=== PATIENT | female | born 1950 | race Caucasian/White ===

== ENCOUNTER 2017-03-20 15:02 | Emergency (ER) | payer MEDICAID ==
[~2017-03-20] VITALS: Ht 147.3 cm; Wt 74.7 kg
[2017-03-20] MEDS ORDERED: cloNIDine 0.1 mg tablet PO ONE (15:30)
[2017-03-20] MEDS ORDERED: morphine 5 MG/ML injection IV ONE (15:40)
[2017-03-20] MEDS ORDERED: morphine 4 MG/ML inj SYRINge IV ONE (15:40)
[2017-03-20] MEDS ORDERED: ondansetron/PF 4mg/2ml inj IV ONE (15:40)
[2017-03-20 16:03] LABS: BASOPHILS # (AUTO) 0.1 X10'3 (0-0.2); BASOPHILS % (AUTO) 0.7 % (0-1); EOSINOPHILS # (AUTO) 0.2 X10'3 (0-0.9); EOSINOPHILS % (AUTO) 1.6 % (0-6); HEMATOCRIT 48.1 % (35.0-45.0); HEMOGLOBIN 16.7 g/dl (12.0-16.0); LYMPHOCYTES % (AUTO) 31.1 % (21-51); MEAN CORPUSCULAR HEMOGLOBIN 30.7 PG (27.0-31.0); MEAN CORPUSCULAR HGB CONC 34.8 % (33.0-36.5); MEAN CORPUSCULAR VOLUME 88.3 FL (78-98); MEAN PLATELET VOLUME 8.7 FL (7.4-10.4); MONOCYTES # (AUTO) 1.1 X10'3 (0-0.9); MONOCYTES % (AUTO) 10.9 % (2-12); NEUTROPHILS # (AUTO) 5.4 X10'3 (1.8-7.7); NEUTROPHILS % (AUTO) 55.7 % (42-75); PLATELET COUNT 225 X10'3 (140-440); RED BLOOD COUNT 5.45 X10'6 (4.20-5.60); WHITE BLOOD COUNT 9.7 X10'3 (4.5-11.0)
[2017-03-20 16:20] LABS: ALANINE AMINOTRANSFERASE 52 U/L (12-78); ALBUMIN/GLOBULIN RATIO 0.7 (1.1-1.5); ALKALINE PHOSPHATASE 80 IU/L (46-116); ANION GAP 13 (8-16); ASPARTATE AMINO TRANSFERASE 37 U/L (10-37); BILIRUBIN,TOTAL 0.7 MG/DL (0.1-1.0); BLOOD UREA NITROGEN 13 MG/DL (7-18); BUN/CREATININE RATIO 13.4 (6.6-38.0); CALCIUM 10.1 MG/DL (8.5-10.1); CHLORIDE 99 MMOL/L (99-107); CREATININE 0.97 MG/DL (0.40-0.90); GLUCOSE 134 MG/DL (70-104); POTASSIUM 3.3 MMOL/L (3.5-5.1); SODIUM 139 MMOL/L (135-145); TOTAL CARBON DIOXIDE 27.2 MMOL/L (24-32); TOTAL PROTEIN 9.4 G/DL (6.4-8.2); eGFR 58 ML/MIN
[2017-03-20] MEDS ORDERED: normal saline 1000ML IV soln IVB ONE (16:45)
[2017-03-20] MEDS ORDERED: diphenhydrAMINE 50 mg/ml inj IV ONE (16:50)
[2017-03-20] MEDS ORDERED: metoclopramide 5 mg/ml inj IV ONE (16:50)
[2017-03-20 16:56] LABS: CLARITY,URINE SLIGHTLY CLOUDY (Clear); GLUCOSE, URINE NEGATIVE (Neg); KETONES,URINE NEGATIVE (Neg); LEUKOCYTE ESTERASE ,URINE NEGATIVE (Neg); NITRITES, URINE NEGATIVE (Neg); OCCULT BLOOD,URINE TRACE-INTACT (Neg); PROTEIN,URINE 30 mg/dl (Neg)
[2017-03-20 17:02] LABS: COLOR,URINE AMBER (Yellow); UA COLLECTION TYPE CLN CATCH MIDSTREAM
[2017-03-20 17:05] LABS: BACTERIA,URINE 1+ /HPF (Neg); COARSE GRANULAR CAST 0-3 /LPF (NEGATIVE); MUCUS STRANDS MODERATE /LPF (Neg); RBC,URINE 0-2 /HPF (0-2); SQUAMOUS EPITHELIAL CELL,UR MANY /LPF (FEW); WBC,URINE 0-4 /HPF (0-4)
[2017-03-20] MEDS ORDERED: vancomycin inj 1,000 MG in normal saline 250ml IV soln 250 ML IV ONE (18:10)
[2017-03-20] MEDS ORDERED: iohexol 350MG/ML 100ml bottle IV ONE (18:12)
[2017-03-20] MEDS ORDERED: metoclopramide 10mg tablet PO ONE (18:15)
[2017-03-20] MEDS ORDERED: vancomycin/NS 1 GM ADD-VANTAGE 250 ML X 1 DOSE IV ONE (18:15)
[2017-03-20] MEDS ORDERED: NAPR-56 PO (20:16)
[2017-03-20] MEDS ORDERED: CYCL-1 PO (20:16)
[2017-03-20] MEDS ORDERED: HYDR-3965 PO (20:16)
[2017-03-20 20:39] VITALS: BP 140/100
== END 2017-03-20 20:44 | disposition home or self-care (01) ==
LOC: ER 15:02
DX: M13.88 Other specified arthritis, other site (principal); F12.10 Cannabis abuse, uncomplicated; Z79.899 Other long term (current) drug therapy
CPT/HCPCS: 36415; 70450; 71275; 72125; 80053; 81001; 85025; 96361; 96365; 96366; 96375; 99285; J1200; J2405; J3370; J7030; J8597; Q9967

== ENCOUNTER 2017-08-02 17:27 | Emergency (ER) | payer MEDICAID ==
[~2017-08-02] VITALS: Ht 152.4 cm; Wt 79.5 kg
[~2017-08-02 17:27] MED LIST: AMLO10TA4 PO; ASPI-1 PO; ATOR20TA66 PO
[2017-08-02 18:08] VITALS: BP 136/82
[2017-08-02 18:50] LABS: BASOPHILS # (AUTO) 0.1 X10'3 (0-0.2); BASOPHILS % (AUTO) 0.9 % (0-1); EOSINOPHILS # (AUTO) 0.2 X10'3 (0-0.9); EOSINOPHILS % (AUTO) 3.2 % (0-6); HEMATOCRIT 43.1 % (35.0-45.0); HEMOGLOBIN 14.6 g/dl (12.0-16.0); LYMPHOCYTES % (AUTO) 43.1 % (21-51); MEAN CORPUSCULAR HEMOGLOBIN 30.7 PG (27.0-31.0); MEAN CORPUSCULAR HGB CONC 33.9 % (33.0-36.5); MEAN CORPUSCULAR VOLUME 90.4 FL (78-98); MONOCYTES # (AUTO) 0.6 X10'3 (0-0.9); MONOCYTES % (AUTO) 8.9 % (2-12); NEUTROPHILS % (AUTO) 43.9 % (42-75); PLATELET COUNT 223 X10'3 (140-440); RED BLOOD COUNT 4.77 X10'6 (4.20-5.60); RED CELL DISTRIBUTION WIDTH 14.3 % (11.5-14.5); WHITE BLOOD COUNT 6.9 X10'3 (4.5-11.0)
[2017-08-02 19:01] LABS: PARTIAL THROMBOPLASTIN TIME 25 SECONDS (22-32)
[2017-08-02 19:10] LABS: ALANINE AMINOTRANSFERASE 42 U/L (12-78); ALBUMIN 3.5 G/DL (3.4-5.0); ALBUMIN/GLOBULIN RATIO 0.8 (1.1-1.5); ALKALINE PHOSPHATASE 64 IU/L (46-116); ANION GAP 11 (8-16); ASPARTATE AMINO TRANSFERASE 35 U/L (10-37); BILIRUBIN,TOTAL 0.3 MG/DL (0.1-1.0); BLOOD UREA NITROGEN 4 MG/DL (7-18); CALCIUM 9.5 MG/DL (8.5-10.1); CHLORIDE 104 MMOL/L (99-107); CREATININE 0.99 MG/DL (0.40-0.90); GLUCOSE 126 MG/DL (70-104); SODIUM 143 MMOL/L (135-145); TOTAL CARBON DIOXIDE 27.8 MMOL/L (24-32); eGFR 56 ML/MIN
== END 2017-08-02 23:23 | disposition left against medical advice (07) ==
LOC: ER 17:28
DX: R07.9 Chest pain, unspecified (principal); Z53.21 Procedure and treatment not carried out due to patient leaving prior to being seen by health care provider
CPT/HCPCS: 36415; 71045; 80053; 84484; 85025; 85610; 85730; 93005; 99281

== ENCOUNTER 2020-06-22 14:42 | Emergency (ER) | payer MEDICAID ==
[~2020-06-22] VITALS: Ht 147.3 cm; Wt 75.0 kg
[~2020-06-22 14:42] MED LIST changes: -ASPI-1 PO; +HYDR12.5 PO; +LACT1CAP26 PO; +LOSA25TA96 PO; +OMEP40CA13 PO
[2020-06-22] MEDS ORDERED: iohexol 350MG/ML 100ml bottle IV ONE (15:09)
[2020-06-22] MEDS ORDERED: normal saline 1000ML IV soln IVB ONE ×2 (15:25→16:05)
[2020-06-22] MEDS ORDERED: metoclopramide 5 mg/ml inj IV ONE (15:25)
[2020-06-22] MEDS ORDERED: LORazepam 2 mg/ml vial IV ONE (15:25)
[2020-06-22] MEDS ORDERED: morphine 4 MG/ML inj SYRINge IV ONE (15:25)
[2020-06-22 15:27] LABS: BASOPHILS # (AUTO) 0.1 X10'3 (0-0.2); EOSINOPHILS # (AUTO) 0.2 X10'3 (0-0.9); HEMATOCRIT 42.7 % (35.0-45.0); MEAN CORPUSCULAR HEMOGLOBIN 30.8 PG (27.0-31.0); NEUTROPHILS % (AUTO) 42.8 % (42-75)
[2020-06-22 15:28] LABS: BASOPHILS % (AUTO) 1.1 % (0-1); EOSINOPHILS % (AUTO) 2.6 % (0-6); HEMOGLOBIN 14.5 g/dl (12.0-16.0); LYMPHOCYTES # (AUTO) 3.5 X10'3 (1.1-4.8); LYMPHOCYTES % (AUTO) 41.8 % (21-51); MEAN CORPUSCULAR VOLUME 90.7 FL (78-98); MEAN PLATELET VOLUME 8.3 FL (7.4-10.4); MONOCYTES % (AUTO) 11.7 % (2-12); NEUTROPHILS # (AUTO) 3.5 X10'3 (1.8-7.7); PLATELET COUNT 218 X10'3 (140-440); RED BLOOD COUNT 4.71 X10'6 (4.20-5.60); RED CELL DISTRIBUTION WIDTH 14.3 % (11.5-14.5); WHITE BLOOD COUNT 8.2 X10'3 (4.5-11.0)
[2020-06-22 15:37] LABS: PARTIAL THROMBOPLASTIN TIME 29 SECONDS (22-32)
[2020-06-22 15:40] LABS: ALANINE AMINOTRANSFERASE 28 U/L (12-78); ALBUMIN 3.9 G/DL (3.4-5.0); ALBUMIN/GLOBULIN RATIO 0.8 (1.1-1.5); ALKALINE PHOSPHATASE 91 IU/L (46-116); ANION GAP 10 (8-16); ASPARTATE AMINO TRANSFERASE 25 U/L (10-37); BILIRUBIN,TOTAL 0.8 MG/DL (0.1-1.0); BLOOD UREA NITROGEN 9 MG/DL (7-18); BUN/CREATININE RATIO 8.3 (6.6-38.0); CALCIUM 9.8 MG/DL (8.5-10.1); CHLORIDE 103 MMOL/L (99-107); CREATININE 1.08 MG/DL (0.40-0.90); GLUCOSE 113 MG/DL (70-104); POTASSIUM 3.5 MMOL/L (3.5-5.1); SODIUM 138 MMOL/L (135-145); TOTAL CARBON DIOXIDE 25.3 MMOL/L (24-32); eGFR 50 ML/MIN
--- NOTE | 2020-06-22 15:53 | NUR ---
stroke alert called off by leo patel
[2020-06-22] MEDS ORDERED: methylPREDNISolone sod succ 125mg/2ml vial IV ONE (16:05)
[2020-06-22] MEDS ORDERED: ketorolac trometh. 30mg/ml inj. IV ONE (16:15)
[2020-06-22] MEDS ORDERED: ketorolac tromethamine 15mg/ml inj. IV ONE (16:15)
[2020-06-22 16:54] LABS: CLARITY,URINE CLEAR (Clear); COLOR,URINE YELLOW (Yellow); GLUCOSE, URINE NEGATIVE (Neg); KETONES,URINE NEGATIVE (Neg); LEUKOCYTE ESTERASE ,URINE NEGATIVE (Neg); NITRITES, URINE NEGATIVE (Neg); OCCULT BLOOD,URINE TRACE-INTACT (Neg); PH,URINE 6.5 (4.8-8.0); PROTEIN,URINE NEGATIVE (Neg); UROBILINOGEN,URINE 0.2 E.U/dL (0.2-1.0)
[2020-06-22 16:57] LABS: UA COLLECTION TYPE VOIDED
[2020-06-22 16:58] LABS: RBC,URINE 0-2 /HPF (0-2); WBC,URINE NONE SEEN /HPF (0-4)
[2020-06-22 16:59] LABS: BACTERIA,URINE FEW /HPF (Neg); MUCUS STRANDS NONE SEEN /LPF (Neg); SQUAMOUS EPITHELIAL CELL,UR FEW /LPF (FEW)
[2020-06-22 17:06] LABS: URINE AMPHETAMINE SCREEN NEGATIVE (Neg); URINE BARBITUATE SCREEN NEGATIVE (Neg); URINE BENZODIAZEPINES SCREEN NEGATIVE (Neg); URINE CANNABINOID SCREEN POSITIVE (Neg); URINE COCAINE SCREEN NEGATIVE (Neg); URINE METHADONE SCREEN NEGATIVE (Neg); URINE OPIATE SCREEN NEGATIVE (Neg); URINE PHENCYCLIDINE SCREEN NEGATIVE (Neg)
[2020-06-22 17:15] VITALS: BP 137/78
== END 2020-06-22 18:26 | disposition home or self-care (01) ==
LOC: ER 14:44
DX: G43.909 Migraine, unspecified, not intractable, without status migrainosus (principal); R11.0 Nausea; R79.1 Abnormal coagulation profile; F12.90 Cannabis use, unspecified, uncomplicated; F15.90 Other stimulant use, unspecified, uncomplicated; Z72.89 Other problems related to lifestyle; Z79.899 Other long term (current) drug therapy
CPT/HCPCS: 36415; 70450; 70498; 71045; 80053; 80305; 81001; 85025; 85610; 85730; 86885; 86900; 86901; 93005; 96374; 96375; 99285; J1885; J2060; J2270; J2765; J2930; J7030; Q9967

== ENCOUNTER 2020-11-21 08:13 | Day surgery (SDC) | payer MEDICAID ==
[2020-11-14 16:30] LABS: BASOPHILS # (AUTO) 0.1 X10'3 (0-0.2); BASOPHILS % (AUTO) 1.1 % (0-1); EOSINOPHILS # (AUTO) 0.3 X10'3 (0-0.9); EOSINOPHILS % (AUTO) 4.5 % (0-6); LYMPHOCYTES # (AUTO) 3.3 X10'3 (1.1-4.8); LYMPHOCYTES % (AUTO) 43.1 % (21-51); MEAN CORPUSCULAR HEMOGLOBIN 30.9 PG (27.0-31.0); MEAN CORPUSCULAR HGB CONC 34.3 g/dL (33.0-36.5); MEAN CORPUSCULAR VOLUME 90.1 FL (78-98); MEAN PLATELET VOLUME 8.6 FL (7.4-10.4); MONOCYTES # (AUTO) 0.7 X10'3 (0-0.9); MONOCYTES % (AUTO) 9.3 % (2-12); NEUTROPHILS # (AUTO) 3.2 X10'3 (1.8-7.7); PRE OP HEMATOCRIT 42.3 % (35.0-45.0); PRE OP HEMOGLOBIN 14.5 g/dL (12.0-16.0); PRE OP PLATELET COUNT 254 X10'3 (140-440); RED CELL DISTRIBUTION WIDTH 13.9 % (11.5-14.5)
[2020-11-14 16:43] LABS: PRE OP PROTIME 10.3 SECONDS (9.0-12.0)
[2020-11-14 16:47] LABS: ALBUMIN/GLOBULIN RATIO 0.8 (1.1-1.5); ALKALINE PHOSPHATASE 106 IU/L (46-116); BLOOD UREA NITROGEN 14 MG/DL (7-18); BUN/CREATININE RATIO 11.8 (6.6-38.0); CALCIUM 9.8 MG/DL (8.5-10.1); CHLORIDE 105 MMOL/L (99-107); CREATININE 1.19 MG/DL (0.40-0.90); PRE OP ALT 41 U/L (30-65); PRE OP ANION GAP 11 (8-16); PRE OP AST 33 U/L (10-37); PRE OP BILIRUB, TOTAL 0.5 MG/DL (0.0-1.0); PRE OP GLUCOSE 97 MG/DL (70-104); PRE OP POTASSIUM 3.7 MMOL/L (3.4-5.1); PRE OP SODIUM 143 MMOL/L (135-145); TOTAL CARBON DIOXIDE 27.4 MMOL/L (24-32); TOTAL PROTEIN 8.9 G/DL (6.4-8.2); eGFR 45 ML/MIN
[~2020-11-21] VITALS: Ht 147.3 cm; Wt 82.1 kg
[2020-11-21] VITALS (10 sets, daily range): BP systolic 123–168; BP diastolic 67–110
[~2020-11-21 08:13] MED LIST changes: +AMLO10TA13 PO; -AMLO10TA4 PO; -ATOR20TA66 PO; +ATOR40TA71 PO; +BUPIVAcaine/PF 2.5mg/ml (0.25%) 10ml vial ONE; +CALC-157 PO; -HYDR12.5 PO; -LACT1CAP26 PO; +LIDOcaine 1% 30ml preserv. free vial ONE; +LOSA25TA41 PO; -LOSA25TA96 PO; -OMEP40CA13 PO; +OMEP40CA21 PO; +cefazolin/dext.iso 2gm/50ml 50 ML IV ONE; +famotidine 20mg tablet PO ONE; +ringers solution, lacted 1,000 ML IV SCH
[2020-11-21] MEDS ORDERED: INDOCYANINE GREEN 25 MG/10 ML VIAL IV ONE (09:15)
[2020-11-21] MEDS ORDERED: sevoflurane 250ml liquid IH ONE (11:18)
[2020-11-21] MEDS ORDERED: midazolam 1 mg/ML 2ml injection ONE (11:24)
[2020-11-21] MEDS ORDERED: hydrALAZINE 20mg/ml inj. IV PRN (12:00)
[2020-11-21] MEDS ORDERED: morphine 2 MG/ML inj. syringe IV PRN (12:00)
[2020-11-21] MEDS ORDERED: proCHLORperazine 10 MG/2 ml inj IV PRN (12:00)
[2020-11-21] MEDS ORDERED: ringers solution, lacted 1,000 ML IV SCH (12:00)
[2020-11-21] MEDS ORDERED: labetalol 20mg/4ml (5mg/ml) syringe IV PRN (12:00)
[2020-11-21] MEDS ORDERED: ondansetron/PF 4mg/2ml inj IV PRN (12:00)
[2020-11-21] MEDS ORDERED: meperidine/PF 25mg/ml syringe IV PRN ×3 (12:00)
[2020-11-21] MEDS ORDERED: acetaminophen 1,000mg/100ml IV 100 ML IV PRN (12:00)
[2020-11-21] MEDS ORDERED: dexamethasone sod phosphate 4mg/ml inj. ONE (12:34)
[2020-11-21] MEDS ORDERED: fentaNYL /PF 50mcg/ml 5ml ampule ONE (12:34)
[2020-11-21] MEDS ORDERED: rocuronium 10mg/ml inj IV ONE (12:34)
[2020-11-21] MEDS ORDERED: propofol inj 20 ML IV ONE (12:34)
[2020-11-21] MEDS ORDERED: ondansetron/PF 4mg/2ml inj ONE (12:34)
[2020-11-21] MEDS ORDERED: LIDOcaine 2% (20mg/ml) 5ml vial ONE (12:34)
[2020-11-21] MEDS ORDERED: neostigmine methylsulfate 1 MG/ML 10ml vial ONE (12:38)
[2020-11-21] MEDS ORDERED: glycopyrrolate 0.2mg/ml inj ONE (12:38)
--- NOTE | 2020-11-21 13:00 | NUR ---
Received from OR via [facility] , accompanied by Anesthesiologist JESUS and report given by Anesthesiolgist. PATIENT WITH 20G PIV IN RIGHT UE RUNNING LR AT 100. MEDICATED FOR PAIN UPON ARRIVAL. PATIENT WITH 10L MASK ON WITH 94%4 ABDOMINAL LAP SITES PRESENT SATURATIONS. Addendum: 11/21/20 at 1314 by Jerod Prince RN, RN Amended: Links added.
[2020-11-21] MEDS: morphine 4 MG/ML inj SYRINge IV PRN ×2 (13:06→13:38)
[2020-11-21] MEDS ORDERED: oxyCODONE/APAP 5-325mg tablet PO PRN ×2 (13:15)
--- NOTE | 2020-11-21 14:30 | NUR ---
Report called to receiving nurse. Transferred via WHEELCHAIR WITH Belongings TO [facility] WHERE SHE WAS TAKEN HOME. PATIENT EDUCATED AND DEMONSTRATED PROPER USE OF INCENTIVE SPIROMETER.ENCOURAGE SPLINTING WITH PILLOW AND TO COUGH AND DEEP BREATHE. ALSO DISCUSSED POSSIBILITY OF CO2 IN ABDOMEN. DRESSINGS CDI AT THIS TIME. Addendum: 11/21/20 at 1440 by Jerod Prince RN, RN Amended: Links added.
== END 2020-11-21 14:30 | disposition home or self-care (01) ==
LOC: PAS 08:13
PROVIDERS: ATTEND Surgery
DX: K80.10 Calculus of gallbladder with chronic cholecystitis without obstruction (principal); I10 Essential (primary) hypertension; F32.9 Major depressive disorder, single episode, unspecified; E03.9 Hypothyroidism, unspecified; F12.90 Cannabis use, unspecified, uncomplicated; Z79.899 Other long term (current) drug therapy; Z20.822 Contact with and (suspected) exposure to COVID-19; Z79.01 Long term (current) use of anticoagulants; Z98.890 Other specified postprocedural states; Z86.73 Personal history of transient ischemic attack (TIA), and cerebral infarction without residual deficits; Z86.19 Personal history of other infectious and parasitic diseases; Z82.49 Family history of ischemic heart disease and other diseases of the circulatory system; Z82.61 Family history of arthritis
CPT/HCPCS: 36415; 47563; 80053; 82948; 85025; 85610; 85730; J1100; J2001; J2250; J2270; J2405; J2704; J2710; J3010; J3490; J7120; S2900; U0003; U0005; Z7506; Z7508; Z7512; A4215; A4618; A7000

== ENCOUNTER 2021-05-12 12:04 | Inpatient (IN) | payer MEDICAID ==
[~2021-05-12] VITALS: Ht 147.3 cm; Wt 86.4 kg
[~2021-05-12 12:04] MED LIST changes: -BUPIVAcaine/PF 2.5mg/ml (0.25%) 10ml vial ONE; -LIDOcaine 1% 30ml preserv. free vial ONE; -cefazolin/dext.iso 2gm/50ml 50 ML IV ONE; -famotidine 20mg tablet PO ONE; -ringers solution, lacted 1,000 ML IV SCH
[2021-05-12 12:42] LABS: EOSINOPHILS # (AUTO) 0.3 X10'3 (0-0.9); HEMOGLOBIN 14.8 g/dl (12.0-16.0); MONOCYTES # (AUTO) 0.6 X10'3 (0-0.9); WHITE BLOOD COUNT 7.8 X10'3 (4.5-11.0)
[2021-05-12 12:44] LABS: BASOPHILS # (AUTO) 0.2 X10'3 (0-0.2); BASOPHILS % (AUTO) 3.2 % (0-1); EOSINOPHILS % (AUTO) 3.6 % (0-6); HEMATOCRIT 45.1 % (35.0-45.0); LYMPHOCYTES # (AUTO) 4.4 X10'3 (1.1-4.8); LYMPHOCYTES % (AUTO) 55.8 % (21-51); MEAN CORPUSCULAR HEMOGLOBIN 29.5 PG (27.0-31.0); MEAN CORPUSCULAR HGB CONC 32.8 g/dL (33.0-36.5); MEAN CORPUSCULAR VOLUME 89.9 FL (78-98); MEAN PLATELET VOLUME 9.2 FL (7.4-10.4); MONOCYTES % (AUTO) 7.3 % (2-12); NEUTROPHILS # (AUTO) 2.3 X10'3 (1.8-7.7); NEUTROPHILS % (AUTO) 30.1 % (42-75); PLATELET COUNT 241 X10'3 (140-440); RED BLOOD COUNT 5.02 X10'6 (4.20-5.60); RED CELL DISTRIBUTION WIDTH 13.9 % (11.5-14.5)
[2021-05-12 13:04] LABS: ALANINE AMINOTRANSFERASE 50 U/L (12-78); ALBUMIN 4.2 G/DL (3.4-5.0); ALBUMIN/GLOBULIN RATIO 0.9 (1.1-1.5); ALKALINE PHOSPHATASE 103 IU/L (46-116); ANION GAP 10 (8-16); ASPARTATE AMINO TRANSFERASE 46 U/L (10-37); BILIRUBIN,TOTAL 0.7 MG/DL (0.1-1.0); BLOOD UREA NITROGEN 11 MG/DL (7-18); BUN/CREATININE RATIO 10.2 (6.6-38.0); CHLORIDE 104 MMOL/L (99-107); CREATININE 1.08 MG/DL (0.40-0.90); GLUCOSE 112 MG/DL (70-104); PLATELET ESTIMATE NORMAL; POTASSIUM 3.8 MMOL/L (3.5-5.1); SODIUM 141 MMOL/L (135-145); TOTAL CARBON DIOXIDE 27.5 MMOL/L (24-32); TOTAL CELLS COUNTED 100; TOTAL PROTEIN 9.1 G/DL (6.4-8.2); eGFR 50 ML/MIN
--- NOTE | 2021-05-12 13:45 | NUR ---
pt ambulated to/from restroom without incident. pt reports she feels much better now. awaiting md swenson.
--- NOTE | 2021-05-12 14:34 | NUR ---
dr. tejeda at bedside.
[2021-05-12 14:58] LABS: CLARITY,URINE CLEAR (Clear); GLUCOSE, URINE NEGATIVE (Neg); KETONES,URINE NEGATIVE (Neg); LEUKOCYTE ESTERASE ,URINE NEGATIVE (Neg); NITRITES, URINE NEGATIVE (Neg); OCCULT BLOOD,URINE NEGATIVE (Neg); PH,URINE 7.5 (4.8-8.0); PROTEIN,URINE NEGATIVE (Neg); UROBILINOGEN,URINE 0.2 E.U/dL (0.2-1.0)
[2021-05-12 15:00] LABS: COLOR,URINE STRAW (Yellow); UA COLLECTION TYPE CLN CATCH MIDSTREAM
[2021-05-12] MEDS ORDERED: ondansetron/PF 4mg/2ml inj IV PRN (16:15)
[2021-05-12] MEDS ORDERED: acetaminophen 325mg tablet PO PRN ×2 (16:15)
[2021-05-12] MEDS ORDERED: magnesium hydroxide 30ml (MOM) UD suspension PO PRN (16:15)
[2021-05-12] MEDS ORDERED: morphine 2 MG/ML inj. syringe IV PRN ×2 (16:15)
[2021-05-12] MEDS ORDERED: mag hydrox/Alum hydrox/simeth 30ml oral suspension PO PRN (16:15)
[2021-05-12] MEDS ORDERED: HYDROcodone/acetaminophen 5mg/325mg tablet PO PRN (16:15)
[2021-05-12] MEDS ORDERED: ATOR40TA72 (16:23)
[2021-05-12] MEDS ORDERED: LOSA50TA64 PO (16:23)
[2021-05-12] MEDS ORDERED: ONDA-103 PO (16:23)
[2021-05-12] MEDS ORDERED: OMEP20CA16 PO (16:23)
[2021-05-12] MEDS ORDERED: ASPI-1174 PO (16:23)
[2021-05-12] MEDS ORDERED: AMLO10TA PO (16:23)
--- NOTE | 2021-05-12 18:26 | NUR ---
report to remi tavares
[2021-05-12] MEDS: docusate sod 100mg capsule PO SCH (19:58)
--- NOTE | 2021-05-12 20:40 | NUR ---
Pt arrived from [facility] via [facility], able to get self from bed to [facility] unassisted.
[2021-05-12 20:50] VITALS: BP 136/65
--- NOTE | 2021-05-12 21:00 | NUR ---
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
[2021-05-12 22:00] VITALS: BP 99/56
[2021-05-13 02:00] VITALS: BP 109/87
--- NOTE | 2021-05-13 03:44 | NUR ---
Went to see if pt needed a pain med and pt asleep.
--- NOTE | 2021-05-13 03:54 | NUR ---
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 resolved, pt having weber's Addendum: 05/13/21 at 0356 by Olamide Hogan RN Amended: Links added.
[2021-05-13 06:00] VITALS: BP 132/76
--- NOTE | 2021-05-13 06:10 | NUR ---
Patient in room PCU 3026. I have received report from Sandra COHN and had the opportunity to ask questions and assume patient care.
--- NOTE | 2021-05-13 06:28 | NUR ---
Report to day RN. Laura
[2021-05-13 07:12] LABS: BASOPHILS % (AUTO) 0.6 % (0-1); EOSINOPHILS # (AUTO) 0.4 X10'3 (0-0.9); EOSINOPHILS % (AUTO) 5.1 % (0-6); HEMATOCRIT 40.4 % (35.0-45.0); HEMOGLOBIN 13.6 g/dl (12.0-16.0); LYMPHOCYTES # (AUTO) 3.3 X10'3 (1.1-4.8); LYMPHOCYTES % (AUTO) 42.4 % (21-51); MEAN CORPUSCULAR HEMOGLOBIN 30.5 PG (27.0-31.0); MEAN CORPUSCULAR HGB CONC 33.6 g/dL (33.0-36.5); MEAN CORPUSCULAR VOLUME 90.7 FL (78-98); MEAN PLATELET VOLUME 9.1 FL (7.4-10.4); MONOCYTES # (AUTO) 0.6 X10'3 (0-0.9); MONOCYTES % (AUTO) 8.1 % (2-12); NEUTROPHILS # (AUTO) 3.4 X10'3 (1.8-7.7); NEUTROPHILS % (AUTO) 43.8 % (42-75); PLATELET COUNT 209 X10'3 (140-440); RED BLOOD COUNT 4.45 X10'6 (4.20-5.60); WHITE BLOOD COUNT 7.7 X10'3 (4.5-11.0)
[2021-05-13 07:13] LABS: ALBUMIN 3.4 G/DL (3.4-5.0); ANION GAP 7 (8-16); BLOOD UREA NITROGEN 18 MG/DL (7-18); BUN/CREATININE RATIO 14.6 (6.6-38.0); CHLORIDE 107 MMOL/L (99-107); CREATININE 1.23 MG/DL (0.40-0.90); GLUCOSE 88 MG/DL (70-104); POTASSIUM 3.8 MMOL/L (3.5-5.1); SODIUM 141 MMOL/L (135-145); TOTAL CARBON DIOXIDE 27.1 MMOL/L (24-32); eGFR 43 ML/MIN
[2021-05-13] MEDS ORDERED: pantoprazole 40mg Tablet.DR PO SCH (07:30)
[2021-05-13] MEDS ORDERED: amLODIPine 5mg tablet PO SCH (08:00)
[2021-05-13] MEDS ORDERED: losartan 50mg tablet PO SCH (08:00)
[2021-05-13] MEDS ORDERED: enoxaparin 40mg/0.4ml syringe SUBCUT SCH (08:00)
[2021-05-13] MEDS ORDERED: aspirin 325mg tablet PO SCH (08:00)
[2021-05-13] MEDS: docusate sod 100mg capsule PO SCH (08:08)
[2021-05-13 11:00] VITALS: BP 107/57
--- NOTE | 2021-05-13 12:43 | NUR ---
Patient is stable for discharge per Rusu MD orders. All discharge instructions reviewed with patient and all questions answered. New prescriptions were e scripted to pharmacy. PIV discontinued. rail car repair carman discontinued. Belongings collected and sent with patient. Patient is leaving for transportation via taxi cab. Wheeled to lobby.
== END 2021-05-13 13:41 | disposition home health service (06) | DRG 203 ==
LOC: ER 12:05 → ED HOLD 16:24 → PCU 3S 20:40
PROVIDERS: ADMIT Internal Medicine; ATTEND Internal Medicine
DX: R07.89 Other chest pain (principal); E78.5 Hyperlipidemia, unspecified; F12.90 Cannabis use, unspecified, uncomplicated; I10 Essential (primary) hypertension; Z79.899 Other long term (current) drug therapy; Z86.73 Personal history of transient ischemic attack (TIA), and cerebral infarction without residual deficits; Z90.49 Acquired absence of other specified parts of digestive tract
CPT/HCPCS: 36415; 70450; 71045; 80048; 80053; 81003; 83880; 84443; 84484; 85007; 85025; 85651; 87081; 93005; 93880; 99285; G0378; J1650

== ENCOUNTER 2022-07-20 09:11 | Emergency (ER) | payer MEDICAID ==
[~2022-07-20] VITALS: Ht 152.4 cm; Wt 88.2 kg
[~2022-07-20 09:11] MED LIST changes: +AMLO10TA PO; -AMLO10TA13 PO; +ASPI-1174 PO; -ATOR40TA71 PO; +ATOR40TA72; -CALC-157 PO; -LOSA25TA41 PO; +LOSA50TA64 PO; +OMEP20CA16 PO; -OMEP40CA21 PO; +ONDA-103 PO
[2022-07-20 09:16] VITALS: BP 112/58
[2022-07-20 09:47] LABS: BASOPHILS # (AUTO) 0.1 X10'3 (0-0.2); BASOPHILS % (AUTO) 1.1 % (0-1); EOSINOPHILS # (AUTO) 0.9 X10'3 (0-0.9); HEMATOCRIT 37.8 % (35.0-45.0); HEMOGLOBIN 12.5 g/dl (12.0-16.0); LYMPHOCYTES # (AUTO) 2.5 X10'3 (1.1-4.8); LYMPHOCYTES % (AUTO) 33.4 % (21-51); MEAN CORPUSCULAR HEMOGLOBIN 30.8 PG (27.0-31.0); MEAN CORPUSCULAR VOLUME 93.2 FL (78-98); MEAN PLATELET VOLUME 8.4 FL (7.4-10.4); MONOCYTES # (AUTO) 0.8 X10'3 (0-0.9); MONOCYTES % (AUTO) 10.5 % (2-12); NEUTROPHILS # (AUTO) 3.2 X10'3 (1.8-7.7); PLATELET COUNT 200 X10'3 (140-440); RED BLOOD COUNT 4.05 X10'6 (4.20-5.60); RED CELL DISTRIBUTION WIDTH 14.4 % (11.5-14.5); WHITE BLOOD COUNT 7.5 X10'3 (4.5-11.0)
[2022-07-20 10:07] LABS: BLOOD UREA NITROGEN 38 MG/DL (7-18)
[2022-07-20 10:11] LABS: ALANINE AMINOTRANSFERASE 70 U/L (12-78); ALBUMIN 3.6 G/DL (3.4-5.0); ALBUMIN/GLOBULIN RATIO 0.9 (1.1-1.5); ALKALINE PHOSPHATASE 61 IU/L (46-116); ANION GAP 13 (8-16); ASPARTATE AMINO TRANSFERASE 64 U/L (10-37); BILIRUBIN,TOTAL 0.2 MG/DL (0.1-1.0); CALCIUM 9.1 MG/DL (8.5-10.1); CHLORIDE 105 MMOL/L (99-107); CREATININE 2.37 MG/DL (0.40-0.90); GLUCOSE 101 MG/DL (70-104); LIPASE 155 U/L (73-393); POTASSIUM 4.3 MMOL/L (3.5-5.1); SODIUM 139 MMOL/L (135-145); TOTAL CARBON DIOXIDE 20.9 MMOL/L (24-32); TOTAL PROTEIN 7.6 G/DL (6.4-8.2); eGFR 20 ML/MIN
[2022-07-20] MEDS ORDERED: ibuprofen 200mg tablet PO ONE (12:45)
== END 2022-07-20 13:16 | disposition home or self-care (01) ==
LOC: ER 09:12
DX: K43.9 Ventral hernia without obstruction or gangrene (principal); I10 Essential (primary) hypertension; Z79.899 Other long term (current) drug therapy
CPT/HCPCS: 36415; 80053; 83690; 85025; 99283

== ENCOUNTER 2023-10-21 08:16 | Inpatient (IN) | payer MEDICAID ==
[2023-10-20 19:50] VITALS: BP 93/60; PULSE 73; RESP 16; TEMP 98; O2SAT 97
[~2023-10-21] VITALS: Ht 147.3 cm; Wt 84.1 kg
[~2023-10-21 08:16] MED LIST changes: -ASPI-1174 PO; +ASPI-1468 PO; +CALC-472 PO; +METO25TA6 PO; -ONDA-103 PO; +PER5325T PO
[2023-10-21] MEDS ORDERED: ketorolac trometh 15mg/ml vial 15 MG/ML ML IM ONE (09:30)
[2023-10-21 09:59] LABS: BASOPHILS % (AUTO) 0.4 % (0-1); EOSINOPHILS % (AUTO) 0.3 % (0-6); HEMATOCRIT 37.9 % (35.0-45.0); HEMOGLOBIN 12.5 g/dl (12.0-16.0); LYMPHOCYTES # (AUTO) 2.1 X10'3 (1.1-4.8); LYMPHOCYTES % (AUTO) 19.3 % (21-51); MEAN CORPUSCULAR HEMOGLOBIN 30.4 PG (27.0-31.0); MEAN CORPUSCULAR HGB CONC 32.9 g/dL (33.0-36.5); MEAN CORPUSCULAR VOLUME 92.3 FL (78-98); MEAN PLATELET VOLUME 8.6 FL (7.4-10.4); MONOCYTES # (AUTO) 1.5 X10'3 (0-0.9); MONOCYTES % (AUTO) 13.1 % (2-12); NEUTROPHILS # (AUTO) 7.4 X10'3 (1.8-7.7); NEUTROPHILS % (AUTO) 66.9 % (42-75); PLATELET COUNT 250 X10'3 (140-440); RED BLOOD COUNT 4.11 X10'6 (4.20-5.60); RED CELL DISTRIBUTION WIDTH 13.6 % (11.5-14.5); WHITE BLOOD COUNT 11.1 X10'3 (4.5-11.0)
[2023-10-21 10:12] LABS: ALANINE AMINOTRANSFERASE 14 U/L (12-78); ALBUMIN 3.4 G/DL (3.4-5.0); ALBUMIN/GLOBULIN RATIO 0.6 (1.1-1.5); ALKALINE PHOSPHATASE 81 IU/L (46-116); ANION GAP 13 (8-16); ASPARTATE AMINO TRANSFERASE 18 U/L (10-37); BILIRUBIN,TOTAL 0.7 MG/DL (0.1-1.0); BLOOD UREA NITROGEN 38 MG/DL (7-18); BUN/CREATININE RATIO 11.4 (10.0-20.0); CALCIUM 9.9 MG/DL (8.5-10.1); CHLORIDE 105 MMOL/L (99-107); CREATININE 3.34 MG/DL (0.40-0.90); GLUCOSE 114 MG/DL (70-104); POTASSIUM 3.9 MMOL/L (3.5-5.1); SODIUM 139 MMOL/L (135-145); TOTAL CARBON DIOXIDE 21.4 MMOL/L (24-32); TOTAL PROTEIN 8.8 G/DL (6.4-8.2); eCRCL 10 ML/MIN; eGFR 14 ML/MIN
[2023-10-21 11:12] LABS: C-REACTIVE PROTEIN 8.22 MG/DL (0.0-0.5)
[2023-10-21] MEDS ORDERED: diphenhydrAMINE 25mg capsule PO PRN (11:40)
[2023-10-21] MEDS ORDERED: diphenhydrAMINE 50 mg/ml inj IV PRN (11:40)
[2023-10-21] MEDS ORDERED: potassium Cl 20 mEq SR tablet PO PRN ×2 (11:40)
[2023-10-21] MEDS ORDERED: magnesium hydroxide 30ml (MOM) UD suspension PO PRN (11:40)
[2023-10-21] MEDS ORDERED: morphine 2 MG/ML inj. syringe IV PRN ×2 (11:40)
[2023-10-21] MEDS ORDERED: mag hydrox/Alum hydrox/simeth 30ml oral suspension PO PRN (11:40)
[2023-10-21] MEDS: enoxaparin 40mg/0.4ml syringe SUBCUT SCH (12:13)
[2023-10-21] MEDS: oxyCODONE IR 5mg (immed. release) tablet PO ONE (12:13)
[2023-10-21] MEDS: cyclobenzaprine 10mg tablet PO ONE (12:14)
[2023-10-21] MEDS: acetaminophen 325mg tablet PO ONE (12:14)
[2023-10-21] MEDS: normal saline 500ml IV soln 500 ML IV ONE (12:21)
[2023-10-21] MEDS: normal saline 1000ml 1,000 ML IV SCH (12:24)
[2023-10-21 12:40] LABS: BILIRUBIN,URINE NEGATIVE (Neg); CLARITY,URINE CLOUDY (Clear); COLOR,URINE YELLOW (Yellow); GLUCOSE, URINE NEGATIVE (Neg); KETONES,URINE NEGATIVE (Neg); LEUKOCYTE ESTERASE ,URINE SMALL (Neg); NITRITES, URINE NEGATIVE (Neg); OCCULT BLOOD,URINE NEGATIVE (Neg); PROTEIN,URINE TRACE mg/dl (Neg); UROBILINOGEN,URINE 0.2 E.U/dL (0.2-1.0)
[2023-10-21 12:50] LABS: UA COLLECTION TYPE OTHER
[2023-10-21 12:52] LABS: AMORPHOUS URATES 4+; BACTERIA,URINE 3+ /HPF (Neg); RBC,URINE 0-2 /HPF (0-2); SQUAMOUS EPITHELIAL CELL,UR MANY /LPF (FEW); WBC,URINE 0-4 /HPF (0-4)
[2023-10-21] MEDS: morphine 4 MG/ML inj SYRINge IV ONE (14:42)
[2023-10-21] MEDS: ondansetron/PF 4mg/2ml inj IV PRN (14:46)
[2023-10-21] MEDS ORDERED: LOSA100T58 PO (16:16)
[2023-10-21] MEDS ORDERED: ASPI-1265 PO (16:16)
[2023-10-21] MEDS: LIDOcaine 1% W/epiNEPHrine 1:200,000 10ml vial IJ ONE (18:15)
[2023-10-21] MEDS: LIDOcaine 1% W/epiNEPHrine 1:100,000 20ml vial IJ ONE (18:20)
[2023-10-21 19:50] VITALS: BP 93/60; PULSE 73; RESP 16; TEMP 98; O2SAT 97
[2023-10-21] MEDS: docusate sod 100mg capsule PO SCH (20:00)
[2023-10-21] MEDS ORDERED: temazepam 15mg capsule PO PRN (21:00)
[2023-10-21 22:00] VITALS: BP 131/62; PULSE 64; RESP 17; TEMP 96.5; O2SAT 94
[2023-10-22 06:00] VITALS: BP 101/54; PULSE 65; RESP 17; TEMP 97.4; O2SAT 94
[2023-10-22 07:04] LABS: BASOPHILS # (AUTO) 0.1 X10'3 (0-0.2); BASOPHILS % (AUTO) 0.9 % (0-1); EOSINOPHILS # (AUTO) 0.2 X10'3 (0-0.9); EOSINOPHILS % (AUTO) 2.1 % (0-6); HEMATOCRIT 33.1 % (35.0-45.0); HEMOGLOBIN 10.7 g/dl (12.0-16.0); LYMPHOCYTES # (AUTO) 1.8 X10'3 (1.1-4.8); LYMPHOCYTES % (AUTO) 19.1 % (21-51); MEAN CORPUSCULAR HGB CONC 32.5 g/dL (33.0-36.5); MEAN CORPUSCULAR VOLUME 92.2 FL (78-98); MONOCYTES # (AUTO) 1.1 X10'3 (0-0.9); MONOCYTES % (AUTO) 11.9 % (2-12); NEUTROPHILS # (AUTO) 6.3 X10'3 (1.8-7.7); PLATELET COUNT 225 X10'3 (140-440); RED BLOOD COUNT 3.59 X10'6 (4.20-5.60); WHITE BLOOD COUNT 9.6 X10'3 (4.5-11.0)
[2023-10-22 07:21] LABS: ALANINE AMINOTRANSFERASE 65 U/L (12-78); ALBUMIN 2.8 G/DL (3.4-5.0); ALBUMIN/GLOBULIN RATIO 0.6 (1.1-1.5); ALKALINE PHOSPHATASE 152 IU/L (46-116); ANION GAP 11 (8-16); ASPARTATE AMINO TRANSFERASE 102 U/L (10-37); BILIRUBIN,TOTAL 0.8 MG/DL (0.1-1.0); BLOOD UREA NITROGEN 40 MG/DL (7-18); BUN/CREATININE RATIO 11.7 (10.0-20.0); CALCIUM 9.1 MG/DL (8.5-10.1); CHLORIDE 110 MMOL/L (99-107); CREATININE 3.42 MG/DL (0.40-0.90); GLUCOSE 82 MG/DL (70-104); MAGNESIUM 1.7 MG/DL (1.5-2.4); PHOSPHORUS 4.1 MG/DL (2.3-4.5); POTASSIUM 4.1 MMOL/L (3.5-5.1); SODIUM 141 MMOL/L (135-145); TOTAL CARBON DIOXIDE 19.6 MMOL/L (24-32); TOTAL PROTEIN 7.4 G/DL (6.4-8.2); eCRCL 10 ML/MIN; eGFR 13 ML/MIN
[2023-10-22] MEDS: aspirin 81mg tab.chew PO SCH (07:40)
[2023-10-22] MEDS: pantoprazole 40mg Tablet.DR PO SCH (07:40)
[2023-10-22] MEDS: acetaminophen 325mg tablet PO PRN (07:41)
[2023-10-22] MEDS: amLODIPine 5mg tablet PO SCH (07:41)
[2023-10-22] MEDS: metoprolol tartrate 25mg tablet PO SCH (07:41)
[2023-10-22 08:00] VITALS: RESP 17; O2SAT 94
[2023-10-22] MEDS ORDERED: piperacillin/tazo 3.375gm/50ml 100 ML IV SCH (08:00)
[2023-10-22 10:00] VITALS: BP 93/50; PULSE 61; RESP 15; TEMP 97.9; O2SAT 99
[2023-10-22] MEDS: piperacillin/tazo 3.375gm/50 ML IV SCH (11:03)
[2023-10-22] MEDS ORDERED: VANCOMYCIN 1,500MG in normal saline IV soln 300 ML IV ONE (11:20)
[2023-10-22] MEDS ORDERED: vancomycin/NS 1 GM ADD-VANTAGE 250 ML IV PRN (11:20)
[2023-10-22] MEDS ORDERED: VANCOmycin 2,000MG in NS 500ml IV soln IV ONE (12:00)
[2023-10-22 12:25] LABS: CREATINE KINASE 173 U/L (26-192)
[2023-10-22] MEDS: vancomycin/NS 1 GM ADD-VANTAGE 250 ML X 1 DOSE IV ONE (15:32)
[2023-10-22 18:00] VITALS: BP 104/62; PULSE 66; RESP 13; TEMP 98.8; O2SAT 95
[2023-10-22] MEDS: CefTRIAXone 2gm/D5W 50ml BAG 50 ML IV SCH (20:02)
[2023-10-22] MEDS: predniSONE 20 mg tablet PO SCH (20:06)
[2023-10-22] MEDS: traMADol 50MG tablet PO PRN (21:53)
[2023-10-22 22:00] VITALS: BP 108/52; PULSE 82; RESP 18; TEMP 98.2; O2SAT 95
[2023-10-23 06:00] VITALS: BP 100/53; PULSE 67; RESP 16; TEMP 97.9; O2SAT 96
[2023-10-23 06:27] LABS: HBSAG SCREEN Negative (Negative); HEP B CORE AB, IGM Negative (Negative); HEP B CORE AB, TOT Positive (Negative)
[2023-10-23 07:20] LABS: BASOPHILS % (AUTO) 0.3 % (0-1); EOSINOPHILS % (AUTO) 0.1 % (0-6); HEMATOCRIT 34.8 % (35.0-45.0); HEMOGLOBIN 11.2 g/dl (12.0-16.0); LYMPHOCYTES # (AUTO) 1.1 X10'3 (1.1-4.8); LYMPHOCYTES % (AUTO) 18.3 % (21-51); MEAN CORPUSCULAR HEMOGLOBIN 29.7 PG (27.0-31.0); MEAN CORPUSCULAR HGB CONC 32.2 g/dL (33.0-36.5); MEAN CORPUSCULAR VOLUME 92.3 FL (78-98); MEAN PLATELET VOLUME 8.9 FL (7.4-10.4); MONOCYTES # (AUTO) 0.1 X10'3 (0-0.9); MONOCYTES % (AUTO) 2.4 % (2-12); NEUTROPHILS # (AUTO) 4.9 X10'3 (1.8-7.7); NEUTROPHILS % (AUTO) 78.9 % (42-75); PLATELET COUNT 225 X10'3 (140-440); RED BLOOD COUNT 3.77 X10'6 (4.20-5.60); RED CELL DISTRIBUTION WIDTH 13.9 % (11.5-14.5); WHITE BLOOD COUNT 6.3 X10'3 (4.5-11.0)
[2023-10-23 07:37] LABS: ALANINE AMINOTRANSFERASE 76 U/L (12-78); ALBUMIN 2.7 G/DL (3.4-5.0); ALBUMIN/GLOBULIN RATIO 0.5 (1.1-1.5); ALKALINE PHOSPHATASE 146 IU/L (46-116); ANION GAP 14 (8-16); ASPARTATE AMINO TRANSFERASE 100 U/L (10-37); BILIRUBIN,TOTAL 0.4 MG/DL (0.1-1.0); BLOOD UREA NITROGEN 42 MG/DL (7-18); BUN/CREATININE RATIO 13.5 (10.0-20.0); CALCIUM 9.2 MG/DL (8.5-10.1); CHLORIDE 110 MMOL/L (99-107); CREATININE 3.12 MG/DL (0.40-0.90); GLUCOSE 139 MG/DL (70-104); MAGNESIUM 1.6 MG/DL (1.5-2.4); PHOSPHORUS 3.7 MG/DL (2.3-4.5); POTASSIUM 4.5 MMOL/L (3.5-5.1); SODIUM 143 MMOL/L (135-145); TOTAL CARBON DIOXIDE 19.5 MMOL/L (24-32); TOTAL PROTEIN 7.7 G/DL (6.4-8.2); VANCOMYCIN,RANDOM 13.3 ug/mL (20.0-30.0); eCRCL 11 ML/MIN; eGFR 15 ML/MIN
[2023-10-23 08:00] VITALS: RESP 16; O2SAT 96
[2023-10-23] MEDS: enoxaparin 30mg/0.3ml syringe SUBCUT SCH (08:02)
[2023-10-23 13:32] LABS: ANTINUCLEAR ANTIBODIES Negative (Negative)
[2023-10-23] MEDS: vancomycin/NS 1 GM ADD-VANTAGE 250 ML IV ONE (15:08)
[2023-10-23 18:00] VITALS: BP 128/63; PULSE 81; RESP 16; TEMP 97.6; O2SAT 98
[2023-10-23 22:00] VITALS: BP 112/60; PULSE 65; RESP 18; TEMP 96.9; O2SAT 98
[2023-10-24] MEDS: VANCOMYCIN LEVEL IV SCH (03:00)
[2023-10-24 06:38] VITALS: BP 118/62; PULSE 71; RESP 18; TEMP 97.6; O2SAT 96
[2023-10-24 07:11] LABS: BASOPHILS % (AUTO) 0.1 % (0-1); EOSINOPHILS % (AUTO) 0 % (0-6); HEMATOCRIT 30.7 % (35.0-45.0); HEMOGLOBIN 10.2 g/dl (12.0-16.0); LYMPHOCYTES # (AUTO) 1.4 X10'3 (1.1-4.8); MEAN CORPUSCULAR HEMOGLOBIN 30.5 PG (27.0-31.0); MEAN CORPUSCULAR HGB CONC 33.1 g/dL (33.0-36.5); MEAN CORPUSCULAR VOLUME 92.3 FL (78-98); MEAN PLATELET VOLUME 8.7 FL (7.4-10.4); MONOCYTES # (AUTO) 0.8 X10'3 (0-0.9); MONOCYTES % (AUTO) 4.9 % (2-12); NEUTROPHILS # (AUTO) 13.7 X10'3 (1.8-7.7); PLATELET COUNT 228 X10'3 (140-440); RED BLOOD COUNT 3.33 X10'6 (4.20-5.60); RED CELL DISTRIBUTION WIDTH 13.9 % (11.5-14.5); WHITE BLOOD COUNT 15.9 X10'3 (4.5-11.0)
[2023-10-24 07:34] LABS: ALANINE AMINOTRANSFERASE 61 U/L (12-78); ALBUMIN 2.5 G/DL (3.4-5.0); ALBUMIN/GLOBULIN RATIO 0.6 (1.1-1.5); ALKALINE PHOSPHATASE 112 IU/L (46-116); ANION GAP 13 (8-16); ASPARTATE AMINO TRANSFERASE 48 U/L (10-37); BILIRUBIN,TOTAL 0.2 MG/DL (0.1-1.0); BLOOD UREA NITROGEN 42 MG/DL (7-18); BUN/CREATININE RATIO 18.8 (10.0-20.0); CALCIUM 8.7 MG/DL (8.5-10.1); CHLORIDE 111 MMOL/L (99-107); CREATININE 2.24 MG/DL (0.40-0.90); GLUCOSE 109 MG/DL (70-104); MAGNESIUM 1.4 MG/DL (1.5-2.4); PHOSPHORUS 3.4 MG/DL (2.3-4.5); POTASSIUM 4.1 MMOL/L (3.5-5.1); SODIUM 145 MMOL/L (135-145); TOTAL CARBON DIOXIDE 20.7 MMOL/L (24-32); VANCOMYCIN,RANDOM 19.4 ug/mL (20.0-30.0); eCRCL 15 ML/MIN; eGFR 21 ML/MIN
[2023-10-24] MEDS: acetaminophen 325mg tablet PO PRN (07:38)
[2023-10-24 08:00] VITALS: RESP 16; O2SAT 96
[2023-10-24 10:00] VITALS: BP 112/69; PULSE 51; RESP 18; TEMP 97.5; O2SAT 96
[2023-10-24] MEDS: VANCOMYCIN 750MG IV in NS 250 ML IV SCH (12:36)
[2023-10-24] MEDS: ringers solution, lacted 1,000 ML IV SCH (14:56)
[2023-10-24 18:00] VITALS: BP 121/66; PULSE 60; RESP 15; TEMP 98.2; O2SAT 96
[2023-10-24] MEDS ORDERED: magnesium sulf-water 2g/50mL 50 ML IV PRN (19:40)
[2023-10-24] MEDS ORDERED: magnesium sulf-water 4G/100mL 100 ML IV PRN (19:40)
[2023-10-24] MEDS: K and/or MAG REPLACEMENT MC SCH (20:00)
[2023-10-24] MEDS: magnesium Cl slow-release 64mg tablet PO PRN (20:17)
[2023-10-24 22:00] VITALS: BP 122/65; PULSE 67; RESP 16; TEMP 96.9; O2SAT 97
[2023-10-25 06:00] VITALS: BP 118/59; PULSE 58; RESP 16; TEMP 96.8; O2SAT 97
[2023-10-25 06:43] LABS: BASOPHILS % (AUTO) 0.1 % (0-1); EOSINOPHILS % (AUTO) 0.1 % (0-6); HEMATOCRIT 30.9 % (35.0-45.0); HEMOGLOBIN 10.1 g/dl (12.0-16.0); LYMPHOCYTES # (AUTO) 1.5 X10'3 (1.1-4.8); LYMPHOCYTES % (AUTO) 8.5 % (21-51); MEAN CORPUSCULAR HEMOGLOBIN 29.9 PG (27.0-31.0); MEAN CORPUSCULAR HGB CONC 32.6 g/dL (33.0-36.5); MEAN CORPUSCULAR VOLUME 91.7 FL (78-98); MEAN PLATELET VOLUME 8.6 FL (7.4-10.4); MONOCYTES # (AUTO) 0.5 X10'3 (0-0.9); MONOCYTES % (AUTO) 2.9 % (2-12); NEUTROPHILS # (AUTO) 15.4 X10'3 (1.8-7.7); NEUTROPHILS % (AUTO) 88.4 % (42-75); PLATELET COUNT 251 X10'3 (140-440); RED BLOOD COUNT 3.37 X10'6 (4.20-5.60); RED CELL DISTRIBUTION WIDTH 13.9 % (11.5-14.5); WHITE BLOOD COUNT 17.5 X10'3 (4.5-11.0)
[2023-10-25 07:01] LABS: ALANINE AMINOTRANSFERASE 54 U/L (12-78); ALBUMIN 2.5 G/DL (3.4-5.0); ALBUMIN/GLOBULIN RATIO 0.6 (1.1-1.5); ALKALINE PHOSPHATASE 99 IU/L (46-116); ANION GAP 13 (8-16); ASPARTATE AMINO TRANSFERASE 41 U/L (10-37); BILIRUBIN,TOTAL 0.2 MG/DL (0.1-1.0); BLOOD UREA NITROGEN 40 MG/DL (7-18); BUN/CREATININE RATIO 21.6 (10.0-20.0); CALCIUM 8.7 MG/DL (8.5-10.1); CHLORIDE 109 MMOL/L (99-107); CREATININE 1.85 MG/DL (0.40-0.90); GLUCOSE 119 MG/DL (70-104); MAGNESIUM 1.4 MG/DL (1.5-2.4); PHOSPHORUS 3.3 MG/DL (2.3-4.5); POTASSIUM 3.8 MMOL/L (3.5-5.1); SODIUM 143 MMOL/L (135-145); TOTAL CARBON DIOXIDE 21.5 MMOL/L (24-32); eCRCL 18 ML/MIN; eGFR 27 ML/MIN
[2023-10-25 08:00] VITALS: RESP 16; O2SAT 97
[2023-10-25 08:12] LABS: A/G RATIO 0.7 (0.7-1.7); ALBUMIN 3.2 g/dL (2.9-4.4); ALPHA-1-GLOBULIN 0.4 g/dL (0.0-0.4); ALPHA-2-GLOBULIN 1.2 g/dL (0.4-1.0); BETA GLOBULIN 1.3 g/dL (0.7-1.3); GAMMA GLOBULIN 1.8 g/dL (0.4-1.8); GLOBULIN, TOTAL 4.7 g/dL (2.2-3.9); M-SPIKE Not Observed g/dL (Not Observed); PROTEIN, TOTAL, SERUM 7.9 g/dL (6.0-8.5)
[2023-10-25 08:33] VITALS: BP_SYST 118; PULSE 60
[2023-10-25] MEDS ORDERED: PRED10TA23 PO (13:46)
[2023-10-26 07:18] LABS: A/G RATIO 0.7 (0.7-1.7); ALBUMIN 2.9 g/dL (2.9-4.4); ALPHA-1-GLOBULIN 0.4 g/dL (0.0-0.4); ALPHA-2-GLOBULIN 1.1 g/dL (0.4-1.0); BETA GLOBULIN 1.1 g/dL (0.7-1.3); GAMMA GLOBULIN 1.4 g/dL (0.4-1.8); M-SPIKE Not Observed g/dL (Not Observed); PROTEIN, TOTAL, SERUM 6.9 g/dL (6.0-8.5)
[2023-10-27] MEDS ORDERED: VANCOMYCIN LEVEL IV ONE (10:30)
== END 2023-10-25 14:56 | disposition home or self-care (01) | DRG 422 ==
LOC: ER 08:17 → ED HOLD 11:55 → ORTHO 4S 19:45
PROVIDERS: ADMIT Registered Nurse Psychiatric/Mental Health; ATTEND Registered Nurse Psychiatric/Mental Health
PROC: 009U3ZZ Drainage of Spinal Canal, Percutaneous Approach (ICD-10-PCS; principal; 2023-10-21)
DX: E86.0 Dehydration (principal); N17.0 Acute kidney failure with tubular necrosis; D72.829 Elevated white blood cell count, unspecified; E78.5 Hyperlipidemia, unspecified; I12.9 Hypertensive chronic kidney disease with stage 1 through stage 4 chronic kidney disease, or unspecified chronic kidney disease; Z20.822 Contact with and (suspected) exposure to COVID-19; K21.9 Gastro-esophageal reflux disease without esophagitis; N39.0 Urinary tract infection, site not specified; M47.812 Spondylosis without myelopathy or radiculopathy, cervical region; R79.82 Elevated C-reactive protein (CRP); N18.9 Chronic kidney disease, unspecified; Z79.82 Long term (current) use of aspirin; Z79.899 Other long term (current) drug therapy
CPT/HCPCS: 36415; 70450; 70551; 71045; 72125; 72128; 72131; 72146; 74176; 76770; 80053; 80202; 81001; 82550; 83605; 83735; 84100; 84145; 84155; 84165; 84550; 85025; 85651; 86038; 86140; 86704; 86705; 86706; 87015; 87040; 87070; 87081; 87340; 87811; 93005; 97110; 97116; 97161; 99285; G0378; J0696; J1650; J2270; J2405; J2543; J3370; J7030; J7040; J7050; J7120; J7512